=== PATIENT | female | born 1990 | race Caucasian/White ===

== ENCOUNTER 2017-05-19 08:58 | Inpatient (IN) | payer OTHER ==
[~2017-05-19] VITALS: Ht 165.1 cm; Wt 133.8 kg
--- NOTE | ~2017-05-19 | S ---
[facility] [place] [address] SURGICAL PATH RPT PROCEDURE Name: STACEY BARRIGA Room #: 359-P DIS IN M.R.#: [id number] Admission: 05/19/17 Date of : 88 Discharge: 05/20/17 Report #: [id number] Path Case #: [id number] PATHOLOGY REPORT COLLECTION DATE: 05/19/2017 RECEIVED DATE: 05/19/2017 SUBMITTING PHYS: Dr. Ronak Hernandez, DO OTHER PHYS: SPECIMEN(S) RECEIVED: A.Gallbladder * * * * * * * * * * * * FINAL DIAGNOSIS: Gallbladder "gallbladder, cholecystectomy": - Moderate chronic cholecystitis. (SHA:pit; 05/21/2017) PATHOLOGIST: Juliano Zhong M.D. REPORT ELECTRONICALLY SIGNED BY: Juliano Zhong M.D. DATE/TIME: 05/21/2017 13:00 * * * * * * * * * * * * GROSS PATHOLOGY: Received in formalin labeled "Stacey Barriga, gallbladder," is a 6.3 x 3.1 x 1.5 cm, previously opened gallbladder with bile-stained to adipose-covered serosal surfaces. Opening the gallbladder reveals a velvety, bile-stained mucosa and an average wall thickness of 0.1 cm. Calculi are not present and no masses are noted grossly. Fur Sorter sections from the body and fundus are submitted along with the proximal margin in cassette A1. (CAA; 05/20/2017) CLINICAL HISTORY: Acute cholecystitis INITIAL CPT CODE(S): A; 91217 Professional services performed by [facility] at [facility] [address], [place] [address] Technical services performed by [facility] at [address] [place] [address]. [facility] [address] [place] [address] SURGICAL PATH RPT PROCEDURE Name: STACEY ABRRIGA Room #: 359-P [facility] IN Saúl.R.#: [id number] Admission: 05/19/17 Date of : 88 Discharge: 05/20/17 Report #: [id number] Path Case #: [id number] [facility] [address] [address] PHONE: [phone] DIRECTOR: Chaparro Monson M.D. * * * END OF REPORT * * *
--- NOTE | ~2017-05-19 | EKG ---
[place] [address] [facility] [place] [address] ELECTROCARDIOGRAM REPORT Name: DANIEL LUEVANO Room #: 359-P ADM IN M.R.#: [id number] Admission: 05/19/17 Attend Phys: Ronak Diaz Discharge: Date of : 88 Report #: [id number] THIS REPORT FOR: //name// [facility] ED Test Date: 2017-05-19 Test Time: 09:54:15 Pat Name: DANIEL LUEVANO Department: Room: 359 Gender: F Cmo: [id number] : 1990 Requested By: Cedric Castillo Order Number: [id number] MD: Wai Singer Measurements Intervals [place] Rate: 64 P: 19 ND: 166 QRS: 30 QRSD: 118 T: 6 QT: 416 QTc: 430 Interpretive Statements Sinus rhythm Normal tracing No previous ECG available for comparison Electronically Signed On 05-20-2017 9:18:47 CODING TEAM LEAD by Wai Singer [email or web address] <ELECTRONICALLY SIGNED> By: Wai Singer MD, [facility] 05/20/17 0918 [id number] Wai Singer MD, FACC /EPI
[~2017-05-19 08:58] MED LIST: MOBIC7.5 MG PO
[2017-05-19 09:08] VITALS: BP 136/89
[2017-05-19 10:07] LABS: HEMATOCRIT 25.1 % (37.0-47.0); HEMOGLOBIN 7.3 gm/dL (12.0-15.0); MCH 19.9 pg (26.0-34.0); MCHC 29.3 g/dL (28.0-37.0); MCV 67.9 fL (80.0-100.0); PLATELET COUNT 334 thou/uL (150-400); RBC 3.69 mil/uL (4.20-5.00); RDW 17.5 % (10.5-14.5); WBC 6.9 thou/uL (4.0-11.0)
[2017-05-19 10:10] LABS: CALCIUM 8.9 mg/dL (8.5-10.1); CREATININE 0.6 mg/dL (0.6-1.0); MANUAL DIFF YES; POTASSIUM 4.1 mmol/L (3.5-5.1)
[2017-05-19 10:16] LABS: ALBUMIN 3.5 g/dL (3.4-5.0); TOTAL BILIRUBIN 0.2 mg/dL (<0.1-1.0); TOTAL PROTEIN 7.8 g/dL (6.4-8.2)
[2017-05-19 10:22] LABS: URINE BILIRUBIN NEGATIVE (Negative); URINE BLOOD NEGATIVE (Negative); URINE COLOR YELLOW; URINE GLUCOSE-RANDOM* NEGATIVE (Negative); URINE KETONES TRACE (Negative); URINE LEUKOCYTES-REFLEX NEGATIVE (Negative); URINE PROTEIN (DIPSTICK) NEGATIVE (Negative); URINE UROBILINOGEN 0.2 E.U./dl (0.2-1.0)
[2017-05-19 10:27] LABS: ABSOLUTE NEUTROPHILS 5.2 thou/uL (1.4-8.2); PLATELET ESTIMATE NORMAL; TOTAL CELL COUNT 100
[2017-05-19 10:28] LABS: ANISOCYTOSIS 1+; BURR CELLS 3+; MICROCYTES 2+
[2017-05-19 12:59] VITALS: BP 126/57
[2017-05-19] MEDS ORDERED: HYDROCODONE-AP1 EAC6 PO (15:17)
[2017-05-19] MEDS ORDERED: ONDANSETRON HCL4 M2 PO (15:17)
[2017-05-19 17:30] VITALS: BP 130/72
[2017-05-19 19:30] VITALS: BP 124/56
[2017-05-20 00:10] VITALS: BP 133/52
[2017-05-20 04:17] VITALS: BP 123/63
[2017-05-20 07:27] VITALS: BP 104/47
[2017-05-20 09:53] VITALS: BP 104/47
== END 2017-05-20 11:41 | disposition home or self-care (01) | DRG 419 ==
LOC: ER 08:58 → EROBS 12:27 → 3W 13:00
PROVIDERS: Physician Assistant
PROC: 0FT44ZZ Resection of Gallbladder, Percutaneous Endoscopic Approach (ICD-10-PCS; principal; 2017-05-19)
DX: K80.00 Calculus of gallbladder with acute cholecystitis without obstruction (principal); D64.9 Anemia, unspecified
CPT/HCPCS: 10879; 50010; 50101; 50249; 50411; 50555; 50558; 50962; 51489; 51975; 52265; 53307; 53310; 54022; 54118; 55245; 55317; 56462; 56525; 56526; 62110; 62900; 70005

== ENCOUNTER 2018-09-22 08:31 | Emergency (ER) | payer OTHER ==
[~2018-09-22] VITALS: Ht 165.1 cm; Wt 136.1 kg
[~2018-09-22 08:31] MED LIST changes: +HYDROCODONE-AP1 EAC6 PO; +ONDANSETRON HCL4 M2 PO
[2018-09-22 09:10] LABS: ABSOLUTE NEUTROPHILS 4.6 thou/uL (1.4-8.2); BASOPHILS 0.6 % (0.0-2.0); EOSINOPHILS 3.1 % (0.0-3.0); HEMATOCRIT 28.5 % (37.0-47.0); HEMOGLOBIN 8.5 gm/dL (12.0-15.0); LYMPHOCYTES 22.6 % (24.0-44.0); MCH 21.7 pg (26.0-34.0); MCV 72.5 fL (80.0-100.0); MONOCYTES 5.2 % (1.0-8.0); PLATELET COUNT 300 thou/uL (150-400); POLYS 68.5 % (36.0-66.0); RBC 3.93 mil/uL (4.20-5.00); RDW 17.4 % (10.5-14.5); WBC 6.7 thou/uL (4.0-11.0)
[2018-09-22 09:13] LABS: URINE BILIRUBIN NEGATIVE (Negative); URINE BLOOD NEGATIVE (Negative); URINE CLARITY CLEAR; URINE COLOR YELLOW; URINE GLUCOSE-RANDOM* NEGATIVE (Negative); URINE KETONES NEGATIVE (Negative); URINE LEUKOCYTES NEGATIVE (Negative); URINE NITRITE NEGATIVE (Negative); URINE PROTEIN (DIPSTICK) NEGATIVE (Negative); URINE UROBILINOGEN 0.2 E.U./dl (0.2-1.0)
[2018-09-22 09:13] LABS: CALCIUM 8.7 mg/dL (8.5-10.1); CREATININE 0.6 mg/dL (0.6-1.0); POTASSIUM 4.2 mmol/L (3.5-5.1)
[2018-09-22 09:19] LABS: ALBUMIN 3.3 g/dL (3.4-5.0); TOTAL BILIRUBIN 0.1 mg/dL (<0.1-1.0)
[2018-09-22 09:59] LABS: ANISOCYTOSIS 1+; HYPOCHROMASIA 2+; MICROCYTES 2+; PLATELET ESTIMATE NORMAL
[2018-09-22 10:04] LABS: TROPONIN-I <0.06 ng/mL (<0.06)
[2018-09-22 11:24] LABS: AMP/METHAMP Negative (Negative); BARBITURATES Negative (Negative); BENZODIAZEPINES Negative (Negative); COCAINE Negative (Negative); METHADONE Negative (Negative); OPIATES Negative (Negative); PCP Negative (Negative)
[2018-09-22 11:58] VITALS: BP 126/62
--- NOTE | 2018-09-23 09:37 | EKG ---
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: : 1990 Requested By: Renzo Newman Order Number: [id number] MD: Wai Singer Measurements Intervals [place] Rate: 62 P: 14 MA: 181 QRS: 44 QRSD: 112 T: 17 QT: 445 QTc: 452 Interpretive Statements Sinus rhythm Normal tracing Compared to ECG 05/19/2017 09:54:15 No significant changes Electronically Signed On 09-23-2018 9:37:46 CDT by Wai Singer [email or web address] ��������������������������������������������� <ELECTRONICALLY SIGNED> ���������������������������������������� By: Wai Singer MD, [facility] ��������������������������������������������� 09/23/18 0937 1002 1002 Wai Singer MD, FACC /EPI
== END 2018-09-22 12:05 | disposition home or self-care (01) ==
LOC: ER 08:31
PROVIDERS: Emergency Medicine
DX: D64.9 Anemia, unspecified (principal); R42 Dizziness and giddiness

== ENCOUNTER 2018-12-20 11:42 | Emergency (ER) | payer OTHER ==
[~2018-12-20] VITALS: Ht 162.6 cm; Wt 136.5 kg
[2018-12-20 13:00] LABS: URINE BILIRUBIN NEGATIVE (Negative); URINE BLOOD NEGATIVE (Negative); URINE CLARITY CLOUDY; URINE COLOR YELLOW; URINE GLUCOSE-RANDOM* NEGATIVE (Negative); URINE KETONES NEGATIVE (Negative); URINE NITRITE-REFLEX NEGATIVE (Negative); URINE PROTEIN (DIPSTICK) 2+ (Negative); URINE SPECIFIC GRAVITY 1.025 (1.005-1.035); URINE UROBILINOGEN 0.2 E.U./dl (0.2-1.0)
[2018-12-20 13:02] LABS: URINE LEUKOCYTES-REFLEX 1+ (Negative)
[2018-12-20 13:13] LABS: SQUAMOUS 0-3 Few /LPF (0-3)
[2018-12-20 13:14] LABS: AMORPHOUS URATES Many /LPF (None Seen); BACTERIA-REFLEX 1-9 Few /HPF (None Seen); CASTS None Seen /LPF (None Seen); URINE RBC 0-2 Rare /HPF (0-2); URINE WBC-REFLEX 6-15 Few /HPF (0-5)
[2018-12-20 13:43] LABS: ABSOLUTE NEUTROPHILS 5.7 thou/uL (1.4-8.2); BASOPHILS 0.9 % (0.0-2.0); EOSINOPHILS 1.5 % (0.0-3.0); HEMATOCRIT 28.6 % (37.0-47.0); HEMOGLOBIN 8.9 gm/dL (12.0-15.0); LYMPHOCYTES 24.4 % (24.0-44.0); MCH 24.4 pg (26.0-34.0); MCHC 31.1 g/dL (28.0-37.0); MCV 78.4 fL (80.0-100.0); MONOCYTES 5.2 % (1.0-8.0); PLATELET COUNT 277 thou/uL (150-400); RBC 3.65 mil/uL (4.20-5.00); RDW 18.3 % (10.5-14.5); WBC 8.3 thou/uL (4.0-11.0)
[2018-12-20 13:51] LABS: CALCIUM 8.7 mg/dL (8.5-10.1); CREATININE 0.6 mg/dL (0.6-1.0); POTASSIUM 3.8 mmol/L (3.5-5.1)
[2018-12-20 14:03] LABS: ANISOCYTOSIS 1+
[2018-12-20 15:22] VITALS: BP 104/68
--- NOTE | 2018-12-21 18:20 | EKG ---
[place] [address] [facility] [place] [address] ELECTROCARDIOGRAM REPORT Name: KASIEDANIEL Room #: [facility] Sheryl#: [id number] ������������������ Admission: 12/20/18 ������������������ Attend Phys: Discharge: 12/20/18 ������������������ Date of : 88 Report #: [id number] ����������������������������������������������������������������� [id number] THIS REPORT FOR: //name// [facility] ED Test Date: 2018-12-20 Test Time: 12:13:07 Pat Name: DANIEL FERRO Department: Room: Gender: F Bench Technician: [place] : 1990 Requested By: Fariba Christensen Order Number: [id number] MD: Wai Singer Measurements Intervals [place] Rate: 63 P: 17 UT: 159 QRS: 44 QRSD: 117 T: 19 QT: 428 QTc: 439 Interpretive Statements Sinus rhythm Normal tracing Compared to ECG 09/22/2018 10:02:21 No significant change was found Electronically Signed On 12-21-2018 18:20:22 CDT by Wai Singer [email or web address] ��������������������������������������������� <ELECTRONICALLY SIGNED> ���������������������������������������� By: Wai Singer MD, [facility] ��������������������������������������������� 12/21/18 1820 1213 1213 Wai Singer MD, FACC /EPI
== END 2018-12-20 15:22 | disposition home or self-care (01) ==
LOC: ER 11:42
PROVIDERS: Nurse Practitioner
DX: F41.1 Generalized anxiety disorder (principal); F43.0 Acute stress reaction; D64.9 Anemia, unspecified; R11.2 Nausea with vomiting, unspecified